=== PATIENT | female | born 2000 | race Caucasian/White ===

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

== ENCOUNTER 2022-02-11 01:45 | Emergency (ER) | payer OTHER, SELFPAY ==
[2022-02-11 01:46] VITALS: BP 114/75; PULSE 86; RESP 15; TEMP 36.9; O2SAT 99; BMI 24.4
[2022-02-11 02:39] LABS: Mucous, Urine 0 SEEN /hpf (<or=2+); Red Blood Cells-Urine 0 SEEN /hpf (0-5)
[2022-02-11 02:41] LABS: Color, Urine Yellow (Yellow); Glucose, Dipstick Normal (Normal); Ketone-Dipstick 5 mg/dl (Negative); Leukocyte Esterase-Dipstick Negative /ul (Negative); Nitrite-Dipstick Negative (Negative); Occult Blood-Urine Negative /ul (Negative); Protein-Dipstick Negative (Negative); Specific Gravity, Urine 1.015 (1.002-1.030); Urine Bilirubin Dipstick Negative (Negative); Urine Clarity Clear (Clear); Urine Urobilinogen Normal (Normal)
[2022-02-11 02:43] LABS: Absolute Lymphocyte Count 2.08 X10^3/uL (0.83-4.51); Absolute Neutrophil Count 6.2 X10^3/uL (2.0-7.7); Basophil% 0.9 % (0-1); Eosinophils% 20.2 % (0-5); Hematocrit 42.9 % (37-47); Hemoglobin 15.1 g/dL (12.0-15.0); Lymphocyte # 2.08 X10^3/ul (0.83-4.51); Lymphocyte % 18.2 % (19-41); Mean Corp Hgb Conc 35.2 g/dL (32-36); Mean Corpuscular Hgb 32.2 pg (27.0-32.0); Mean Corpuscular Volume 91.5 fL (81-99); Mean Platelet Vol. 9.3 fl (6.2-12.0); Monocyte# 0.72 X10^3/uL; Monocyte% 6.3 % (0-10); NRBC Flagged by Analyzer 0 % (0-5); Neutrophil # 6.18 X10^3/uL (2.7-7.7); Neutrophil % 54.2 % (47-70); POSITIVE DIFFERENTIAL YES; Platelet Count 364 K/mm3 (150-450); RBC Distribution Width CV 12.5 % (11.6-14.6); RBC Distribution Width SD 41.1 fl (35.1-43.9); Red Blood Count 4.69 M/mm3 (4.2-5.4); White Blood Count 11.4 K/mm3 (4.4-11.0)
[2022-02-11 02:43] LABS: Internal QC Validated? YES +Cl - CLEAR BKGD; Pregnancy, Urine Negative Negative
[2022-02-11 02:46] VITALS: RESP 16
[2022-02-11 02:53] LABS: Bacteria 2+ /hpf (None Seen); Squamous Epithelial Cells - UA 0-5 SEEN /hpf (5-10); White Blood Cells 0-5 SEEN /hpf (0-5)
[2022-02-11 02:58] LABS: Anion Gap 8 (5-15); BUN 10 mg/dL (7-18); BUN/Creat Ratio 10.7 RATIO (10-20); Calcium,Total 9.7 mg/dL (8.5-10.1); Chloride 104 mmol/L (98-107); Creatinine, Serum 0.93 mg/dL (0.55-1.02); EST Glomerular Filtration Rate 81 mL/min (>60); Est Glom Filt Rate - Afr Amer 98 mL/min (>60); Estimated Creatinine Clearance 69.31 ml/min; Glucose 88 mg/dL (74-106); Potassium 3.4 mmol/L (3.5-5.1); Sodium Level 137 mmol/L (136-145)
[2022-02-11 03:00] VITALS: RESP 15
[2022-02-11 03:01] LABS: Amphetamine Urine VISTA NEGATIVE (<1000 ng/mL); Barbiturate Urine VISTA NEGATIVE (< 200 ng/mL); Benzodiazepine Urine VISTA NEGATIVE (< 200 ng/mL); Cocaine Urine VISTA NEGATIVE (< 300 ng/mL); Ecstacy Urine VISTA POSITIVE (< 500 ng/mL); Methadone Urine VISTA NEGATIVE (< 300 ng/mL); PCP Urine VISTA NEGATIVE (< 25 ng/mL); THC Urine VISTA POSITIVE (< 50 ng/mL); Vista UDS pH Range 5
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
[2022-02-11 03:05] LABS: Acetaminophen (Tylenol) Level < 2.0 ug/mL (10.0-30.0); Alcohol, Blood (Medical)-Serum < 3.0 mg/dL; Differential Comment SCANNED; Differential Indicated SCAN CRITERIA MET; Salicylate < 1.7 mg/dL (2.8-20.0)
--- NOTE | 2022-02-11 03:12 | ED.RN ---
CALLED AND FAXED EVERYTHING TO CRISIS
[2022-02-11 05:00] VITALS: RESP 15
[2022-02-11 06:40] VITALS: BP 128/76; PULSE 52; RESP 16; O2SAT 98
[2022-02-14 20:55] LABS: Pathologist Review Reviewed
== END 2022-02-11 06:46 | disposition home or self-care (01) ==
PROVIDERS: Emergency Provider Emergency Medicine; Visit Provider Emergency Medicine
DX: F32.A Depression, unspecified (principal); R45.851 Suicidal ideations; F17.210 Nicotine dependence, cigarettes, uncomplicated; Z86.16 Personal history of COVID-19
CPT/HCPCS: 80048; 80307; 80329; 81001; 81025; 82077; 85025; 87811; 99283; G0480

== ENCOUNTER 2022-03-16 08:00 | Outpatient (RCR) | payer OTHER, SELFPAY ==
--- NOTE | 2022-03-16 09:00 | BH.COMM ---
Communication Note - Communication with Client Communication Note: Pt completed initial paperwork and [place] [facility] Scre[facility]. Case discussed with Dr. Purvis with plan to admit to [facility] level of care with dx of F33.2
--- NOTE | 2022-03-16 09:00 | BH.COMM_ITS ---
Communication Note - Communication with Client Communication Note: Pt completed initial paperwork and [place] [facility] Sc reening. Case discussed with Dr. Purvis with plan to admit to [facility] level of care with dx of F33.2
--- NOTE | 2022-03-16 11:15 | BH.SGPN.GN ---
Behaviors/Verbalizations/Mental Status: []Client alert and oriented, casually dressed and groomed. Eye contact good. Motor activity appropriate. Speech within normal limits. Affect congruent, mood euthymic. Thoughts linear, logical, no signs of hallucinations or delusions. Client Response/Progress/Benefit: []Client responded well to session, attentive. Did well to process activity and work with group to relate the strategies used to overcome barriers in the activity to managing change in own life. Client identified she wants to change her reaction is intrusive thoughts. client stated she is currently in preparation stage. Client reported goal is to journal her thoughts and reactions every time she has an intrusive thought rather than action on the thought. Appeared to benefit from identifying a small goal to work towards. Client will continue IOP tx to prevent decompensation, gain healthy coping skills, and improve daily functioning.
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
--- NOTE | 2022-03-16 15:44 | BH.COMM ---
Communication Note - Communication with Client Communication Note: Met with patient to complete initial paperwork. No significant changes since pre-admission screening. Completed [place] [facility]icide Screening. Low to moderate risk. Pt has no hx of prior suicide attempts or hospitalizations. Hx of chronic, passive SI. Reports vague plan to overdose or use her grandmother?s gun, without actual plan or intent. Denies any suicidal ideation in past month. Hx of self-harming via cutting on 3 occasions in the past year. Last occasion was again 3-4 weeks ago. Reports she has not engaged in any self-harming behaviors since and denies any urges to do so. Denies access to lethal means. Pt denies hx of HI, plan or intent. Case discussed with Dr. Purvis with plan to admit to IOP level of care with dx of Major depressive disorder, recurrent, severe without psychosis, F33.2
== END 2022-03-16 23:59 ==
LOC: BHIOP 08:00
PROVIDERS: Referring Provider Psychiatry & Neurology Psychiatry; Visit Provider Psychiatry & Neurology Psychiatry
DX: F33.2 Major depressive disorder, recurrent severe without psychotic features (principal); Z91.51 Personal history of suicidal behavior
CPT/HCPCS: S9480; 90834; 90853

== ENCOUNTER 2022-03-17 07:27 | Outpatient (RCR) | payer OTHER, SELFPAY ==
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
[2022-03-17 10:08] VITALS: BP 124/78; PULSE 79
--- NOTE | 2022-03-17 10:13 | BH.SGPN.GN ---
Behaviors/Verbalizations/Mental Status: []Client alert and oriented, casually dressed and groomed. Eye contact good. Motor activity appropriate. Speech within normal limits. Affect congruent, mood anxious and euthymic. Thoughts linear, logical, no signs of hallucinations or delusions. Client Response/Progress/Benefit: [] Client responded well to session AEB sharing and listening attentively to others. Client participated in activity illustrating how perspective affects mental health. Client participated in group discussion on what shapes our perspective, contributing priorities and current emotions as examples. Client appeared connected to psychoeducation on how our thoughts and attitude can become ?lenses? that we see the world through. Participated in group discussion reviewing how these lenses affect mental health treatment, stating that a negative perspective could cause someone to be less willing to participate in the tx process. Shared her current perspective positive but that she still struggles with reinforcing this outside of the tx environment. Shared that this has resulted in client continuing to struggle with managing her emotions at times, but that she is working on addressing and improving these skills. Client appeared to benefit from increased knowledge of perspective and how mental health can impact or be impacted by one?s perspective. Will continue IOP treatment to improve anxiety and mood management skills, increase confidence in self, and improve overall mood stability. Narrative Note: []
--- NOTE | 2022-03-17 11:15 | BH.SGPN.GN ---
Behaviors/Verbalizations/Mental Status: []Pt alert and oriented, casually dressed and groomed. Eye contact good. Motor activity appropriate. Speech within normal limits. Affect congruent, mood euthymic. Thoughts linear, logical, no signs of hallucinations or delusions. Client Response/Progress/Benefit: []Pt was attentive and contributed in small and larger group discussion. Pt completed strengths exploration worksheet and identified personal strengths to include: curiosity, leadership, empathy, and modesty. Pt shared that working to recognize these personal strengths more consistently will help improve pt?s mood and increase self-worth. Shared wanting to focus on fostering personal strengths by practicing ?putting my eggs in multiple baskets? or not limiting herself by the roles she puts herself in. Also identified barriers for acknowledging and using strengths. Benefited from identifying personal strengths and strategies for enhancing use of identified strengths. Pt to continue IOP tx to increase distress tolerance skills, reduce the use of unhealthy coping skills, and improve daily functioning. Narrative Note: []
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
--- NOTE | 2022-03-17 12:52 | BH.DR.ITP ---
Initial Treatment Plan Patient Information Visit Information: ADMISSION DATE: EXPECTED LOS: 4-6 weeks Problems/Symptoms Problem #1:: Depression Symptom:: Sadness, irritability, worthlessness, low energy, decreased concentration, guilt, chronic passive suicidal ideation, recent thoughts of self-harm Problem #2:: Anxiety Symptom:: Worry, rumination, flashbacks, reexperiencing, avoidance
--- NOTE | 2022-03-17 14:49 | BH.MTP_ITS ---
Master Treatment Plan - Patient Information Program Physician:: Dr. Bee Purvis Primary Therapist:: JOSE Toro - Psychiatric Diagnoses Psychiatric Diagnoses:: 1. Major depressive disorder, recurrent, severe. 2. PTSD. 3. Borderline personality disorder. 4. Generalized anxiety disorder Diagnosis Code(s):: F 33.2 - Estimated LOS Estimated LOS (in weeks):: 6 Problem/Goal #1 - Problem/Goal #1 Stated Goal:: Client will reduce depressive symptoms, worthlessness, irritability, hopelessness, and apathy associated with major depressive disorder AEB reduction of scores on the depressive domain of the DSM-5 cross-cutting scales. Description of Barriers: Limited support, conflict with current support, hx of poor tx outcomes, and a far commute to tx which is a concern to pt given recent increase in gas prices Functional Impact: The patient is a 21-year-old female with a history of depression, anxiety and PTSD who was referred to the IOP program by a perinatal social worker in the [facility] emergency room. The patient was seen in the emergency room on February 11, 2022 with suicidal ideation and thoughts of self-harm after an argument with her boyfriend and step grandmother, whom she calls ?mom?. Pt reports that her mental health has been a stressor for much of her life but that sx have gotten progressively worse in the past year. Reports her greatest stressor lately is the fact that her boyfriend is now living away from her and she seeks reassurance often that he cares for and about her. Reports that when she is anxious, she has emotional outbursts like she did on February 11, 2022. Shared she has a hx of damaging property during these times and becomes upset when her mother tries to stop her from harming herself. The patient has a hx of self-harming via cutting and reports she cut her leg superficially on February 11, which was the first time in ?a long time?. Shared she occasionally punches herself when upset, but denies any other recent self-harm. At the time of her ER visit on February 11 she was ruminating negatively on her mother's by overdose when the patient was 17 years old. Patient is currently estranged from her father but has reconnected with him recently which has been an additional stressor. At time of intake, pt endorsing fear of rejection and abandonment, depression, crying spells, irritability, mood swings, isolation, apathy, worthlessness and guilt, low energy and decreased concentration, chronic suicidal ideation when her emotions escalate only. Denies any active SI, plan, or intent. Pt reports current sx are impacting her social, occupational, and educational functioning and has increased interpersonal stressors. - Objectives Objective #1 Stated Objective: Client will learn and utilize 2-3 healthy coping strategies to manage depressive symptoms AEB self-report and reduction in DSM-5 scores Interventions: Therapist will help client identify distorted, negative beliefs about self and replace with more realistic, affirmative messages. Therapist will use CBT to help client increase insight to the connection between thoughts, emotions, and behaviors. Therapist will encourage client to practice thought challenging. Discharge Criteria: Able to identify and consistently use 2-3 healthy coping skills for depression. Reduction on DSM-5 depression domain. Target Date: 04/27/22 Review Date: 04/06/22 Objective #2 Stated Objective: Client will improve relationship with self and reduce discomfort in being alone by learning and engaging in independent practices that help enhance a sustained sense of jarvis. Interventions: Use validation, dialectical strategies and cognitive-behavioral strategies to help the client manage, reduce, or regulate maladaptive behaviors, thoughts, and feelings. Facilitate the client?s personal and interpersonal growth by helping him/her choose experiences that strengthen self-awareness, personal values, and appreciation of life. Provide psychoeducation on healthy self-care activities and encourage client to consistently begin engaging in these. Discharge Criteria: Client will report reduced depressive sx and improved sense of self-confidence, as well as be able to identify and report engaging in 2-3 self-care practices Target Date: 04/27/22 Review Date: 04/06/22 Problem/Goal #2 - Problem/Goal #2 Stated Goal:: Client will reduce overall frequency, intensity, and duration of anxiety to improve functioning AEB by a reduction of scores on the anxiety domain of the DSM-5 cross-cutting scales. Description of Barriers: Limited support, conflict with current support, hx of poor tx outcomes, and a far commute to tx which is a concern to pt given recent increase in gas prices Functional Impact: The patient is a 21-year-old female with a history of depression, anxiety and PTSD who was referred to the IOP program by a perinatal social worker in the [facility] emergency room. The patient was seen in the emergency room on February 11, 2022 with suicidal ideation and thoughts of self-harm after an argument with her boyfriend and step grandmother, whom she calls ?mom?. Pt reports that her mental health has been a stressor for much of her life but that sx have gotten progressively worse in the past year. Reports her greatest stressor lately is the fact that her boyfriend is now living away from her and she seeks reassurance often that he cares for and about her. Reports that when she is anxious, she has emotional outbursts like she did on February 11, 2022. Shared she has a hx of damaging property during these times and becomes upset when her mother tries to stop her from harming herself. The patient has a hx of self-harming via cutting and reports she cut her leg superficially on February 11, which was the first time in ?a long time?. Shared she occasionally punches herself when upset, but denies any other recent self-harm. At the time of her ER visit on February 11 she was ruminating negatively on her mother's by overdose when the patient was 17 years old. Patient is currently estranged from her father but has reconnected with him recently which has been an additional stressor. At time of intake, pt endorsing fear of rejection and abandonment, depression, crying spells, irritability, mood swings, isolation, apathy, worthlessness and guilt, low energy and decreased concentration, chronic suicidal ideation when her emotions escalate only. Denies any active SI, plan, or intent. Pt reports current sx are impacting her social, occupational, and educational functioning and has increased interpersonal stressors. - Objectives Objective #1 Stated Objective: Client will identify 2-3 anxiety triggers and 2 calming coping skills to reduce anxiety as shown by decreased DSM-5 cross cutting symptom measure scores. Interventions: Through individual and group counseling will teach the client calming/relaxation skills (e.g., muscle relaxation, mindful breathing) and how to discriminate better between relaxation and tension; teach the client how to apply these skills to his/her daily life. Discharge Criteria: Able to identify and consistently utilize per self-report 3 calming skills to manage anxiety and improve functioning. Target Date: 04/27/22 Review Date: 04/06/22 Objective #2 Stated Objective: Client will identify 2-3 cognitive distortions that lead to rumination and learn 2-3 ways to manage these thoughts to better manage anxiety. Interventions: Therapist will use CBT and DBT techniques to help client gain awareness of thinking errors and learn how to more effectively handle negative thoughts. Therapist will provide education on the most common cognitive distortions and teach client the connection between thoughts, emotions, and feelings. Therapist will assist client in identifying, challenging, and replacing dysfunctional thoughts with positive, more realistic thoughts. Discharge Criteria: Pt will identify and be able to successfully replace 2-3 distortions causing panic and increased anxiety Target Date: 04/27/22 Review Date: 04/06/22
--- NOTE | 2022-03-19 10:10 | BH.SGPN.GN ---
Behaviors/Verbalizations/Mental Status: []Pt alert and oriented, casually dressed and groomed. Eye contact good. Motor activity appropriate. Speech within normal limits. Affect congruent, mood euthymic. Thoughts linear, logical, no signs of hallucinations or delusions. Client Response/Progress/Benefit: []Pt was an active participant in group discussions. Attentive during psychoeducation on 4 types of conflict styles (Competing, Collaborating, Avoiding, and Accommodating). Worked with group to define conflict and identify how conflict is helpful. With peers identified barriers to addressing or managing conflict which included: fear of upsetting others, fear of the outcome, and feeling uncomfortable. Pt believes she uses the competing style the most. Pt shared this style leads to pt ?using all of my energy on my emotions? and maintaining unhealthy cycles. Benefited from group due to increase insight and awareness of benefits to conflict, conflict styles, and obstacles to managing conflict. Will continue in IOP to reduce the use of unhealthy coping skills, increase emotional regulation skills, and improve overall functioning. Narrative Note: []
--- NOTE | 2022-03-19 11:15 | BH.SGPN.GN ---
Behaviors/Verbalizations/Mental Status: []Pt alert and oriented, casually dressed and groomed. Eye contact good. Motor activity appropriate. Speech within normal limits. Affect congruent, mood euthymic and anxious. Thoughts linear, logical, no signs of hallucinations or delusions. Client Response/Progress/Benefit: []Pt engaged in session AEB contributing to discussion and engaging in activity. Pt did well to review current conflict style and its impact on mental health. Attentive and taking notes during discussion on strategies for more effectively managing conflict in personal life. Pt participated in activity and did well to be assertive and collaborating. Pts given handout on fair fighting rules. Pt wants to improve her ability to manage conflict by working on asking herself why she is upset before entering a conflict. Pt shared this will help pt reduce emotional reactivity and response better during stress situations. Appeared to benefit from gaining strategies to help pt better manage conflict. Will continue IOP tx to increase self-awareness of BPD symptoms, increase emotional regulation skills, and improve daily functioning. Narrative Note: []
--- NOTE | 2022-03-24 10:13 | BH.SGPN.GN ---
Behaviors/Verbalizations/Mental Status: []Eye contact is good. Motor activity is appropriate. Appearance is casual. Speech is Appropriate. Mood is anxious and euthymic. Affect is congruent. Thoughts are linear and logical. No evidence of psychosis. Client Response/Progress/Benefit: []Pt connected with topic of Anxiety and participated throughout, providing input and taking notes. Attentive during psychoeducation on different anxiety disorders and participated throughout interactive discussion defining anxiety and identifying cognitive and physiological symptoms of anxiety. Pt stated ?anxiety can motivate us to do better at things like sports?. Common cognitive symptoms identified by group included: ?what if thoughts?, ?fear of failure?, and predicting the future type thoughts. Physiological symptoms reported by patient included: crying, restlessness, and increased heart rate. Benefited from increased awareness and insight on anxiety and its impact. Plan is to continue in IOP to maintain mood stability, increase consistency of healthy coping, and prevent decompensation. Narrative Note: []
--- NOTE | 2022-03-24 14:46 | BH.MDN_ITS ---
Multi-Disciplinary Note - Note 30-min Individual Time Started:: 09:33 Date: 03/24/22 Purpose of session/treatment goals addressed:: To address current stressors impacting mental health and causing increased anxiety. Another purpose was to address treatment goals 1 & 2 by learning the ACCEPTS skill for distress tolerance. Eye Contact:: Good Motor Activity:: Appropriate Appearance:: Neat, Casual Speech:: Appropriate Mood:: Euthymic, Anxious Affect:: Full Thoughts:: Linear, Logical, No evidence of hallucinations/delusions noted Staff Interventions:: psychoeducation on: - healthy boundary setting, emotion regulation and self-care, strengths perspective, goal setting, taught coping skills - DBT skill of ACCEPTS, other - reviewed distortions Client Response:: Client responded well to session, open to meeting with therapist. Client stated she and her boyfriend recently learned his father will be moving back to the area from [place] where he had been in rehab for polysubstance use. Client discussed concerns this may have on both her mental health and her boyfriend?s, given that client?s mother had overdosed shortly after discharging from rehab several years ago. Client did well to identify the importance of continued self-care and communicating with her boyfriend ahead of time about what boundaries may be important to establish with his father. Client identified visiting only with him in public places and if her is sober, as well as not agreeing to do any favors or loan any money to him as well. Discussed reminding herself to focus on what is in her control would be helpful as well. Identified plans to continue to maintain the self-care routine she has recently implemented, which includes: picking up her room daily, working out 3-5x a week, and reading each day. Client receptive to discussion reviewing importance of continued self-care on overall emotion regulation and appeared to connect with psychoeducation on distress tolerance skills she can utilize when experiencing unexpected stressors or triggers. Reviewed the DBT ACCEPTS skill and client reports willingness to begin tracking use of the ACCEPTS skills during moments she is feeling triggered. Risks/Concerns:: Client denies any suicidal ideations, plan, or intent as of 03/24/22. Client denies any homicidal ideations. Progress Toward Goals/Plan:: Client is responding well to tx AEB self-report of reduced anxiety and improved mood. Client continues to be attentive and actively engaged during group sessions and receptive to homework in individual sessions. Client reports beginning to utilize the skills for regulating her emotions and challenging her thoughts that she has been learning over the past week and a half, expressing beliefs she has already begun to see progress. Client continues to endorse negative thinking, ruminating thoughts, reassurance seeking, and mood swings. Client will continue IOP tx to prevent decompensation, learn healthy coping skills, and challenge distortions. Time Stopped:: 10:07
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
--- NOTE | 2022-03-25 09:08 | BH.SGPN.GN ---
Behaviors/Verbalizations/Mental Status: [] Client alert and oriented, casually dressed and groomed. Eye contact good. Motor activity appropriate. Speech within normal limits. Affect normal, mood euthymic. Thoughts linear, logical, no signs of hallucinations or delusions. Reviewed client's symptom tracker, no risk for suicidal ideation, plan, or intent as of 03/25/22 Client Response/Progress/Benefit: [] Client responded well to session, attentive and providing active supportive feedback to other group members. Client reported feeling tired, but optimistic due to not sleeping well, but is excited about her mental health journey. Client shared personal victories, including consistency on self care and focus on mental and physial health. Client indicated that stressor was feeling tired due to struggle with sleep. Appeared to benefit from reflecting on goals and providing/getting validation from other group members. Will continue IOP tx to build on skills to improve overall functioning. Narrative Note: []
--- NOTE | 2022-03-25 10:20 | BH.SGPN.GN ---
Behaviors/Verbalizations/Mental Status: []Eye contact is good. Motor activity WNL. Appearance is casual. Speech is Appropriate. Mood is euthymic and anxious. Affect is congruent. Thoughts are linear and logical. No evidence of psychosis. Client Response/Progress/Benefit: []Pt engaged and actively participating throughout group discussions and psychoeducation on managing emotions. Contributed as group identified obstacles or potholes that hinder our ability to communicate in stressful situations. Pt noted looking away or not allowing herself to display emotion as a personal pothole. Group identified the following additional obstacles; assumptions, shutting down, misinterpreting someone?s communication style, personalizing, and trying to communicate too much information at once. Pt provided insight on how awareness and consistent use of healthy coping skills can help improve emotion regulation and overall communication. Pt was engaged during the activity, taking on both a leadership role as well as supporting others in the group setting. Benefited from increased awareness on how our emotions impact our communication. Will continue in IOP to prevent decompensation, continue to learn healthy coping skills for emotion regulation, and improve daily functioning. Narrative Note: []
--- NOTE | 2022-03-25 11:15 | BH.SGPN.GN ---
Behaviors/Verbalizations/Mental Status: []Pt alert and oriented, casually dressed and groomed. Eye contact good. Motor activity appropriate. Speech within normal limits. Affect constricted, mood anxious. Thoughts linear, logical, no signs of hallucinations or delusions. Client Response/Progress/Benefit: []Pt engaged in session AEB client listening attentively to peers and providing input. Attentive during psychoeducation on 4 zones of regulation. Pt able to identify feelings and behaviors for each zone. Pt identified coping skills one can use to support self in each zone. Pt stated belief that pt is in the yellow and blue zones today. Pt reports feeling tired, agitated, and distracted today. Pt reports wanting to take a nap, accomplish some small tasks around the house, and look at the evidence when having anxious thoughts. Benefited from increased education on zones of regulation or stages of alertness for emotions and healthy coping skills to use for each zone. Pt will continue IOP tx to increase self-awareness, improve emotional regulation skills, and improve overall functioning. Narrative Note: []
--- NOTE | 2022-03-26 10:15 | BH.SGPN.GN ---
Behaviors/Verbalizations/Mental Status: []Pt alert and oriented, casually dressed and groomed. Eye contact good. Motor activity appropriate. Speech within normal limits. Affect congruent, mood content. Thoughts linear, logical, no signs of hallucinations or delusions Client Response/Progress/Benefit: []Pt responded well to session AEB sharing and listening attentively to others. pt was engaged throughout group discussion defining fixed mindset and what it can look like. Group discussed how fixed mindset affects mental health and why we use fixed thoughts. Pt participated in experiential activity encouraging pts to find solutions to a seemingly impossible task. Pt identified personal fixed thoughts in session which included ?I?m worthless, not good enough, and I?m not going anywhere in life.? Pt gained insight to how these fixed thoughts reduce motivation and keep pt stuck in unhealthy cycles. Pt appeared to benefit from increased knowledge of fixed mindset and self-awareness of personal fixed thoughts. Will continue IOP treatment to reduce negative self-talk, improve emotional regulation skills, and increase distress tolerance. Narrative Note: []
--- NOTE | 2022-03-26 11:16 | BH.SGPN.GN ---
Behaviors/Verbalizations/Mental Status: []Pt alert and oriented, casually dressed and groomed. Eye contact good. Motor activity appropriate. Speech within normal limits. Affect congruent, mood euthymic. Thoughts linear, logical, no signs of hallucinations or delusions. Client Response/Progress/Benefit: []Pt engaged during activity and discussion AEB providing some input, connecting with peers, as well as taking notes throughout. Pt did well to engage as group worked on identifying characteristics and benefits of adopting a growth mindset. Worked with fellow participants in reframing the example fixed thoughts into growth mindset thoughts, providing support throughout. Reframed personal fixed thought of ?this isn?t good enough? with growth mindset thought of ?nobody is perfect. Doing good is achievable, but also my imperfections help me grow and make me human.? Benefitted from discussing benefits of growth mindset and brainstorming strategies for prompting growth-mindset. Will continue IOP tx to reduce negative thinking patterns, improve self-care consistency, and maintain mood stability. Narrative Note: []
--- NOTE | 2022-03-27 09:00 | BH.SGPN.GN ---
Behaviors/Verbalizations/Mental Status: [] Eye contact is good. Motor activity is appropriate. Appearance is casual. Speech is Appropriate. Mood is euthymic. Affect is full. Thoughts are linear and logical. No evidence of psychosis. Reviewed daily check in sheet and no reports of suicidal ideations or intent. Client Response/Progress/Benefit: [] Pt was an active participant in group discussion. Attentive. Provided appropriate feedback. Emotion for today happy. Daily symptom tracker notes 2/5 for depression and /5 for anxiety. Mental health win was stepping outside her comfort zone last night. She discuss how this was beneficial to her mental health. Reports that she has been utilizing coping skills such as reframing and challenging her initial perceptions and not simply accepting automatic negative thoughts. Stressor is reported to be her sleep schedule and figuring out ways to fall asleep w/o rumination. Progress noted per pt report. Benefited from group support, encouramgent, and feedback. Will continue in IOP to prevent decompensation, maintain safety, and increase healthy coping skills. Narrative Note: []
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
--- NOTE | 2022-04-02 10:10 | BH.SGPN.GN ---
Behaviors/Verbalizations/Mental Status: [] Eye contact is good. Motor activity is appropriate. Appearance is casual. Speech is Appropriate. Mood is euthymic. Affect is full. Thoughts are linear and logical. No evidence of psychosis Client Response/Progress/Benefit: [] Pt was an active participant in group discussions and experiential activity. Attentive during psychoeducation. Group had an interactive discussion in which they provided insight on the definition of a pitfall which was things that we engage in that keep us stuck and away from a healthier path. Group identified types of pitfalls in mental health such as isolation, not asking for help, avoiding, not taking medications, avoiding responsibilities, not setting boundaries, and self-sabotage. Pt played an active role in the experiential activity and was able to make connections between the activity and today's topic. Benefited from increased insight on pitfalls and how they can impact mental health. Will continue in IOP to prevent decompensation, maintain safety, increase health coping, and stablize mood. Narrative Note: []
--- NOTE | 2022-04-02 11:10 | BH.SGPN.GN ---
Behaviors/Verbalizations/Mental Status: []Pt alert and oriented, casually dressed and groomed. Eye contact good. Motor activity appropriate. Speech within normal limits. Affect congruent, mood anxious and dysthymic. Thoughts linear, logical, no signs of hallucinations or delusions. Client Response/Progress/Benefit: []Pt receptive of session, engaged throughout AEB pt actively listening and contributing to discussion, as well as taking notes.? Pt completed worksheet identifying personal pitfalls impacting mental health progress. Pt identified the following pitfalls: negative thoughts, self-doubt, wanting to give up, anxiety, sadness, and not realizing when needing a break. Group worked together to identify different coping skills to help manage pitfalls. Pt selected the following coping skills to help with pitfalls: thought challenging, self-reflection and journaling mood, as well as using the T.H.I.N.K. acronym for thought challenging. Pt wants to work on managing pitfalls by setting small goals focused on improving her thought challenge skills and ability to reframe distortions. Benefited from identifying personal pitfalls and strategies to overcome these pitfalls. Will continue IOP tx to reduce unhealthy thought patterns, improve mood stability, and increase healthy coping behaviors. Narrative Note: []
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
--- NOTE | 2022-04-06 09:08 | BH.SGPN.GN ---
Behaviors/Verbalizations/Mental Status: []Pt alert and oriented, neatly dressed and groomed. Eye contact good. Motor activity appropriate. Speech within normal limits. Affect full, mood euthymic and anxious. Thoughts linear, logical, no signs of hallucinations or delusions. Reviewed pt?s symptom tracker, no risk for suicidal ideation, plan, or intent as of 04/06/22 Client Response/Progress/Benefit: []Pt responded well to session, attentive and providing supportive statements to peers. Pt reports using fidgety this morning due to continuing to cope with the triggers of Father's Day. Pt stated overall she coped well with the triggers as pt went for a drive and listened to music. Pt also spent time with her boyfriend and his sisters which was positive. Pt also received news that she will be getting money back from college which reduced a lot of financial stress. Pt appeared to benefit from reflecting on positives and use of skills. Pt will continue IOP tx to promote mood stability, further reduce negative thinking, and improve daily functioing. Narrative Note: []
--- NOTE | 2022-04-06 10:10 | BH.SGPN.GN ---
Behaviors/Verbalizations/Mental Status: []Eye contact is good. Motor activity is appropriate. Appearance is casual. Speech is Appropriate. Mood is euthymic. Affect is congruent. Thoughts are linear and logical. No evidence of psychosis. Client Response/Progress/Benefit: []Pt was an active participant in group discussion and activity. Attentive during psychoeducation on social stigma vs self-stigma. Pt was actively involved in interactive discussion on the question of What impacts how we define and view ourselves? Pt along with peers were able to identify several aspects that impact how we view ourselves which include: society, past experiences, upbringing, guilt over past actions, shame, what we tell ourselves, and actions. Pt reported internal stigma has kept her from believing she deserves relationships. Benefited from increased awareness of how mental health stigma can impact individuals and treatment. Plan is to continue in IOP to maintain progress, increase confidence, and prevent decompensation.
--- NOTE | 2022-04-07 09:10 | BH.SGPN.GN ---
Behaviors/Verbalizations/Mental Status: []Pt alert and oriented, casually dressed and groomed. Eye contact good. Motor activity appropriate. Speech within normal limits. Affect congruent, mood euthymic and anxious. Thoughts linear, logical, no signs of hallucinations or delusions. Reviewed pt?s symptom tracker, no risk for suicidal ideation, plan, or intent as of 04/07/22 Client Response/Progress/Benefit: []Pt responded well to session, attentive and providing supportive statements to peers. Pt reports feeling hopeful this morning as she is seeing progress in treatment and feels overall more capable of managing her current mental health sx. Pt stated looking forward to a concert she has planned in May with her boyfriend and was excited to have finished paying for the ticket for the event. Pt also reports spending time with her boyfriend and his sisters which was positive as she has been trying to focus on being around healthy supports and setting better boundaries with unhealthy people in her life. Reports improved boundaries have reduced exposure to unnecessary trauma triggers and aided in pt making the decision to begin seeking trauma specific treatment following IOP completion. Pt appeared to benefit from reflecting on positives and use of skills. Pt will continue IOP tx to promote mood stability, further reduce negative and anxious thinking, and improve daily functioning. Narrative Note: []
--- NOTE | 2022-04-07 10:10 | BH.SGPN.GN ---
Behaviors/Verbalizations/Mental Status: [] Eye contact is good. Motor activity is appropriate. Appearance is casual. Speech is Appropriate. Mood is euthymic. Affect is full. Thoughts are linear and logical. No evidence of psychosis. Client Response/Progress/Benefit: [] Pt was an active participant in group discussion and group experiential activity. Attentive during psychoeducation on SMART (Specific, Measurable, Achievable, Realistic, Timely)goals. Engaged in interactive discussion with peers on benefits to setting goals. Pt stated that goals help her with personal growth. Shared that the obstacles to setting/following goals are her mood, her mental health, and negative self-talk. Engaged during activity and was able to relate the activity to goal-setting topic. Benefited from increased awareness on benefits to goal-setting, obstacles to developing and following through with a goal, and strategies for setting goals. Will continue in IOP to prevent decompensation, increase healthy coping skills, and maintain safety. Narrative Note: []
--- NOTE | 2022-04-07 11:15 | BH.SGPN.GN ---
Behaviors/Verbalizations/Mental Status: []Pt alert and oriented, casually dressed and appropriately groomed. Eye contact good. Motor activity appropriate. Speech within normal limits. Affect congruent, mood euthymic. Thoughts linear, logical, no signs of hallucinations or delusions. Client Response/Progress/Benefit: []Pt was an active participant in group discussions and activities. Engaged in activity. Pt identified a SMART goal for the next week is to: go to work from 6:30pm to 9:30pm Tuesday through Tuesday. Pt stated having set schedule will help her stay accountable and work the expected 12 hours versus waiting until last minute to get her work done which increases her anxiety. Identified time management, excuses and procrastination as potential barriers to completing this goal. Pt able to identify several solutions, such as opposite action, identifying consequences of not following schedule, and create visual aid schedule as possible strategies that can help overcome identified barriers. Benefited from group by being able to utilize SMART acronym to create a goal. Pt to continue IOP tx to maintain gains, improve confidence and prevent decompensation.
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
--- NOTE | 2022-04-07 14:56 | BH.MDN ---
Multi-Disciplinary Note - Note 30-min Individual Time Started:: 08:35 Date: 04/07/22 Purpose of session/treatment goals addressed:: Reviewed progress and current symptoms and stressors. 4 weeks treatment plan review. Begin aftercare/Discharge planning. Eye Contact:: Good Motor Activity:: Appropriate Appearance:: Neat, Casual Speech:: Appropriate Affect:: Full Thoughts:: Linear, Logical, No evidence of hallucinations/delusions noted Staff Interventions:: thought challenging, motivational interviewing, psychoeducation on: - trauma and attachment development on relationships later in life, discharge planning, strengths perspective, reviewed DSM-5, goal setting Client Response:: Pt receptive of session and actively engaged throughout. Presents today in good spirits and discussed feeling she has so far made ?a lot of progress?, reviewing improved ability to catch her negative thoughts and better cope with stressors in the moment. Pt discussed trying to take steps to actively break the unhealthy maintenance cycles she engages in by working on challenging her distorted thoughts and unhealthy coping behaviors when recognizing these. Indicated improved interactions with supports as a result. Pt noted continuing to struggle at time with navigating her interpersonal relationships, especially when disappointed or upset by her supports. Shared continuing to struggle with knowing how to communicate her emotions and concerns in healthy ways in moments of unexpected stress or conflict. Continues to lash out or seek reassurance when feeling emotionally triggered. Pt additionally discussed fears she is ?relying too much? on her step grandma ?mom? and boyfriend as primary sources of support. Became tearful as she shared missing her biological mother and feeling she never had the opportunity to ?have a real family like normal people?. Receptive of challenging this and identifying her ability to now create a healthier family dynamic through the supports she chooses to surround herself with. Pt noted wanting to expand her social [place] as she does not have many friends and struggles with allowing herself to let others in. Receptive of discussion introducing attachment styles and impacts of attachment formation on establishment and maintenance of adult relationships. Identified small goals to begin working on to improve communication with current supports. Risks/Concerns:: None noted. Denies SI, plan, or intent as of this date, 04/07/22 Progress Toward Goals/Plan:: Pt completed DSM-5 outcomes at 3-week interval. Overall, pt has seen a 63% decrease in symptoms. 63% decrease in the depression domain, 75% decrease in irritability, and 58% reduction in anxiety domain. Suicidal thoughts decreased 100% in the past 3 weeks as well. Pt also self-reports decreased hopelessness, improved motivation and enjoyment, and overall feeling more positive and self-confident. Pt reports she has been reaching out to healthy supports more consistently and is working to better establish and maintain boundaries with toxic people in her life, though is struggling with guilt associated. Pt admits to continuing to struggle with reassurance seeking and being short with supports at times, though is working to continue to improve in this area. Pt is additionally challenging herself to re-engage in activities she used to enjoy rather than isolating herself in her room. We discussed discharge as this is pt's 3rd week in [facility]. She is moving to [place] in May and is experiencing difficulties in finding providers who take [facility] in that area. Pt reports wanting to look into getting off her mother?s insurance and getting on her own plan. Receptive of establishing with local providers in the meantime. Time Stopped:: 09:10
--- NOTE | 2022-04-07 15:20 | BH.MTP_ITS ---
Treatment Plan Review Date of Admission:: 03/16/22 Date of Treatment Plan Review:: 04/07/22 Admitting Diagnoses:: 1. Major depressive disorder, recurrent, severe. 2. PTSD. 3. Borderline personality disorder. 4. Generalized anxiety disorder Current Diagnoses:: 1. Major depressive disorder, recurrent, moderate. 2. PTSD. 3. Borderline personality disorder. 4. Generalized anxiety disorder Patient's Response to Treatment:: Pt has responded well to tx AEB her ability to remain consistent and engaged in IOP, as well as reports of improvement in mood stability and coping skill application. In groups pt is engaged and shows insight, as well as provides supportive feedback to fellow participants. She does well to remain actively engaged in individual sessions and openly discusses sx, stressors, and barriers impacting tx. Pt reports actively applying the skills she has learned outside the tx environment, as well indicates increased engagement in self-reflection and thought challenging skills. Pt reports improved communication with supports regarding her mental health and support needs as well. Status of Current Problems and Symptoms: Pt completed DSM-5 outcomes at 3-week interval. Overall, pt has seen a 63% decrease in symptoms. 63% decrease in the depression domain, 75% decrease in irritability, and 58% reduction in anxiety domain. Suicidal thoughts decreased 100% in the past 3 weeks as well. Pt also self-reports decreased hopelessness, improved motivation and enjoyment, and overall feeling more positive and self-confident. Pt reports she has been reaching out to healthy supports more consistently and is working to better establish and maintain boundaries with toxic people in her life, though is struggling with guilt associated. Pt admits to continuing to struggle with reassurance seeking and being short with supports at times, though is working to continue to improve in this area. Pt is additionally challenging herself to re- engage in activities she used to enjoy rather than isolating herself in her room. Staff present during review. Dr. Bee Purvis. Mya Almaraz- therapist. Elizabeth Garcia ? therapist. Leandra Rhodes- therapist. Arely Srivastava- nurse Problem #1 Problem Name:: Depression, hopelessness, irritability Status of Goals:: Complete with continued progress encouraged. Pt has shown a 63% reduction of scores on the depressive domain since admission. Suicidal thoughts have also decreased 100% since admission. She is able to identify coping skills, however, has been inconsistent in her application of skills and still struggles with use of maladaptive behaviors at times. Per self-report increased awareness of depression triggers; however struggles with making time to prioritize self-care needs when faced with situational stressors and continues to struggle with relationship with self/self-compassion which is reinforced by pt negative core beliefs. Team Recommendations:: Continue IOP tx with an emphasis on healthy boundary setting and self-care skills. Continue to focus on in the moment distress tolerance, self-compassion, and improving internal dialogue Problem #2 Problem Name:: Anxiety, rumination, reassurance seeking Status of Goals:: Complete with continued progress encouraged. Reduction of 58% in scores on the anxiety domain of the DSM-5. Self-report of decreased anxiety. Able to identify calming skills and reports more consistent use when recognizing triggers. Reports using calming skills more consistently which has aided in reducing emotional reactivity as well. She continues to have days were she struggles with ruminating thoughts and distortions related to interpersonal relationships and stressors. Continues to struggle with reassurance seeking within intimate relationships, though has awareness of this and is actively working on using thought challenging, sitting with the uncomfortable, and replacing safety behaviors with healthier coping tools to reduce reassurance seeking as well. Team Recommendations:: Continue IOP tx with an emphasis on challenging anxious thoughts and reducing unhealthy safety behaviors/reassurance seeking. Will connect pt with EMDR therapy prior to discharge as well.
--- NOTE | 2022-04-08 09:00 | BH.SGPN.GN ---
Behaviors/Verbalizations/Mental Status: []Pt alert and oriented, casually dressed and groomed. Eye contact good. Motor activity appropriate. Speech rapid. Affect congruent, mood anxious. Thoughts linear, logical, no signs of hallucinations or delusions. Reviewed pt?s symptom tracker, no risk for suicidal ideation, plan, or intent as of 04/08/22 Client Response/Progress/Benefit: [] Pt responded well to session, anxious but receptive to feedback. Pt reports feeling afraid this morning due to work stressors and potential consequences. Pt admits she has not been doing her job to the best of her abilities and pt is afraid she will get in trouble. Group offered advice to honestly communicate to pt's employer which pt appeared to benefit from. Pt stated her mental health win today is she is sitting with the uncomfortable and she used healthy emotional regulation skills last night. Pt appeared to benefit from group feedback. Pt will continue IOP tx to further increase distress tolerance, improve work-related functioning, and reduce avoidance. Narrative Note: []
--- NOTE | 2022-04-09 09:05 | BH.SGPN.GN ---
Behaviors/Verbalizations/Mental Status: [] Eye contact is good. Motor activity is appropriate. Appearance is casual. Speech is Appropriate. Mood is euthymic. Affect is full. Thoughts are linear and logical. No evidence of psychosis. Reviewed daily check in sheet and no reports of suicidal ideations or intent. Client Response/Progress/Benefit: [] Pt was an active participant in group discussion. Attentive. Provided appropriate feedback. Daily symptom tracker notes 12/19 for anxiety and anger. Emotion for today is excited. Mental health win is that she is looking forward to spending time with her brother this weekend. She discussed how this is beneficial to her mental health. Another win is that she received her [employer] Assistance certificate in the mail which she is proud to have accomplished. She also reports that she is setting boundaries and accepting that she can't change how other act or what they think. She is also more accepting that people need to change at their own pace. Discussed how she would get frustrated in the past with others not seeing or agreeing with her perspective and this would lead to anger, avoidance, and resentments. Progress noted. Benefited from group support, encouragement, and feedback. Will continue in IOP to maintain safety, increase healthy coping, and prevent decompensation. Narrative Note: []
--- NOTE | 2022-04-09 10:10 | BH.SGPN.GN ---
Behaviors/Verbalizations/Mental Status: []Pt alert and oriented, casually dressed and groomed. Eye contact good. Motor activity appropriate. Speech within normal limits. Affect congruent, mood euthymic. Thoughts linear, logical, no signs of hallucinations or delusions. Client Response/Progress/Benefit: []Pt responded well to session AEB pt listening attentively to others and taking notes. Pt was engaged throughout discussion introducing the topic of self-care and its importance. Group identified myths about self-care, such as self-care is selfish, takes too much money, takes too much time, has to be fun, and means one thinks they are more important than others. Contributed ideas as group identified self-care benefits to include: improved mood, reduced avoidance, better relationships, and more productivity. Pt stated it is important for her to have alone time for self-care. Pt appeared to benefit from increased knowledge of the importance and benefits of self-care. Will continue IOP tx to promote use of emotional regulation skills, reduce avoidance, and improve self-compassion. Narrative Note: []
--- NOTE | 2022-04-09 11:15 | BH.SGPN.GN ---
Behaviors/Verbalizations/Mental Status: []Pt alert and oriented, casually dressed and groomed. Eye contact good. Motor activity appropriate. Speech within normal limits. Affect constricted, mood anxious. Thoughts linear, logical, no signs of hallucinations or delusions. Client Response/Progress/Benefit: []Pt engaged participant AEB completing self-assessment worksheet and contributing input during discussion. Participated throughout group discussion on the various areas of self-care. Pt completed worksheet which identified current self-care practices and what self-care activities pt wants to start using. Pt selected finanical self-care to begin practicing more consistently. Pt plans to do this by making a budget and selling clothes before she buys more. Appeared to benefit from completing the self-care evaluation and gaining insights into current self-care practices, as well as identifying areas in which she would like to improve upon. Will continue IOP tx to further improve emotional regulation skills, reduce impulsivity, and improve daily functioning. Narrative Note: []
--- NOTE | 2022-04-09 11:38 | BH.COMM ---
Communication Note - Communication with Client Communication Note: Pt requested to meet with this therapist at start of group as she was given unexpected news that her plans to see her brother this afternoon may be canceled. Pt tearful and discussed feeling overwhelmed, sad, angry, and anxious. Discussed feeling out of control of the situation. Did well to complete a grounding exercise with therapist and regulate herself. Pt then did well to identify what is in her control of the situation and how she can respond in a healthy way. Shared she can drive to her brother since he can no longer come to her and that she can listen to calming music on the drive there. Able to calm down and return to group.
--- NOTE | 2022-04-14 09:05 | BH.SGPN.GN ---
Behaviors/Verbalizations/Mental Status: [] Eye contact is good. Motor activity is appropriate. Appearance is casual. Speech is Appropriate. Mood is depressed. Affect is full. Thoughts are linear and logical. No evidence of psychosis. Reviewed daily check in sheet and no reports of suicidal ideations or intent. Client Response/Progress/Benefit: [] Pt was an active participant in group discussion on strategies for managing anger. Attentive. Provided appropriate feedback. Emotion for today is nervous and happy. Daily symptom tracker notes 10/21 for depression, anxiety, and anger. Mental health wins are reported to be getting here today. She is said that her IOP therapist went on maternity leave and she doesn't want to start over with therapy This therapist empathized with her feelings and thoughts. Pt states I don't do well with change and she discussed a meltdown she had last week when plans changed. 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 This had worked in the past and feels that she can use these skills with future changes. Benefited from group feedback, support, and encouragement. Will continue in [facility] to maintain safety, prevent decompensation, and increase healthy coping. Narrative Note: []
--- NOTE | 2022-04-14 10:10 | BH.SGPN.GN ---
Behaviors/Verbalizations/Mental Status: []Pt alert and oriented, casually dressed and groomed. Eye contact good. Motor activity appropriate. Speech within normal limits. Affect constricted, mood anxious and irritable. Thoughts linear, logical, no signs of hallucinations or delusions. Client Response/Progress/Benefit: []Pt responded well to session AEB taking notes throughout and listening attentively to others. Pt was attentive throughout group activity identifying famous individuals and how they overcame failure to be successful. Pt helped group identify how fear of failure can impact mental health and relationships. Pt personally identified it leads to self-sabotage, not trying, and isolation. Pt participated in experiential activity, working with group members to problem solve. Appeared to benefit from increased knowledge of fear of failure. Will continue IOP tx to increase distress tolerance skills, improve stress management, and reduce negative thinking patterns. Narrative Note: []
--- NOTE | 2022-04-14 11:15 | BH.SGPN.GN ---
Behaviors/Verbalizations/Mental Status: []Pt alert and oriented, casually dressed and groomed. Eye contact good. Motor activity appropriate. Speech within normal limits. Affect constricted, mood anxious. Thoughts linear, logical, no signs of hallucinations or delusions. Client Response/Progress/Benefit: []Pt responded well to session, engaged in the experiential activity and attentive throughout group processing. Pt reported fear of failure has kept pt from moving out, self-reliance, and adulting. Pt completed fear of failure worksheet and was able to identify thoughts and behaviors that reinforce personal fear of failure including being uncomfortable with not being in control, perfectionism, and negative self-talk. Pt participated in small group discussion regarding strategies to overcome fear of failure. Identified wanting to work on not defining herself by what others have done to her. Appeared to benefit from increased knowledge of strategies to combat fear of failure and gaining self-awareness. Pt will continue IOP tx to further improve emotional regulation skills, reduce negative thinking patterns, and increase distress tolerance skills to manage stressors. Narrative Note: []
--- NOTE | 2022-04-15 10:20 | BH.SGPN.GN ---
Behaviors/Verbalizations/Mental Status: []Pt alert and oriented, casually dressed and groomed. Eye contact good. Motor activity appropriate. Speech within normal limits. Affect congruent, mood euthymic. Thoughts linear, logical, no signs of hallucinations or delusions. Client Response/Progress/Benefit: []Pt was an active participant in group discussion. Group worked together to identify benefits of healthy relationships which include; improves mental health, encouragement, motivation, accountability, validation, connection, someone to share experiences with, and personal growth. Group identified factors that lead to unhealthy relationships which included; co-dependence, lack of personal exploration, gaslighting, and blaming. Pt stated because she did not have any examples of healthy relationships as a child, it was hard for pt to accept the healthy relationship she has currently. Actively participated in group experiential activity and expressed ideas to group. Benefited from increased insight and awareness of benefits of healthy relationships and factors that contribute to unhealthy relationships. Will continue in IOP to promote gains, further decrease negative thinking patterns, and improve work-related functioning. Narrative Note: []
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
== END 2022-04-15 23:59 ==
LOC: BHIOP 07:27
PROVIDERS: Referring Provider Psychiatry & Neurology Psychiatry; Visit Provider Psychiatry & Neurology Psychiatry
DX: F33.2 Major depressive disorder, recurrent severe without psychotic features (principal); F43.10 Post-traumatic stress disorder, unspecified; F60.3 Borderline personality disorder; F41.1 Generalized anxiety disorder; Z91.51 Personal history of suicidal behavior; F12.99 Cannabis use, unspecified with unspecified cannabis-induced disorder; Z79.899 Other long term (current) drug therapy; Z97.5 Presence of (intrauterine) contraceptive device
CPT/HCPCS: S9480; 90832; 90834; 90837; 90853

== ENCOUNTER 2022-04-16 07:25 | Outpatient (RCR) | payer OTHER, SELFPAY ==
[2022-04-16 00:44] VITALS: BP 124/78; PULSE 79
--- NOTE | 2022-04-20 09:05 | BH.SGPN.GN ---
Behaviors/Verbalizations/Mental Status: [] Eye contact is good. Motor activity is appropriate. Appearance is casual. Speech is normal. Mood is depressed. Affect is full. Thoughts are linear and logical. No evidence of psychosis. Reviewed daily check in sheet and no reports of suicidal ideations or intent. Client Response/Progress/Benefit: [] Pt was an active participant in group. Attentive. Tearful at times. Daily symptom tracker notes /5 for depression, anxiety, and anger. Pt shared stressors and events that led to increased depression, anxiety, and irritability. She reports these events triggered fear of abandonment and past experiences which led to increased ruminations. All of this has impacted her mental health. Had urges to verbally lash out impulsively however was able to cope with these urges. She is struggling with setting boundaries for fear of consequences. She was able to process her emotions with the group and a discussion was had about importance of boundaries for one's mental health which was beneficial. Stressor this weekend led to a resurgence of emotions however she was able to utilize skills and support to process and manage. Will continue in IOP to prevent decompensation, increase healthy coping, and maintain gains. Narrative Note: []
--- NOTE | 2022-04-20 10:10 | BH.SGPN.GN ---
Behaviors/Verbalizations/Mental Status: []Client alert and oriented, casually dressed and groomed. Eye contact good. Motor activity appropriate. Speech within normal limits. Affect congruent, mood irritable. Thoughts linear, logical, no signs of hallucinations or delusions Client Response/Progress/Benefit: [] Client responded well to session AEB sharing and listening attentively to others. Client provided examples of benefits of having social support, including ?motivation from gym production trainer?. Client also participated in group discussion regarding how it feels to not have social support, stating she struggles with codedency. Clinician provided psychoeducation on types of support including internal and external support, with client identifying family and social media as other supports. Client participated in experiential activity illustrating the importance of having multiple social supports. Client provided supportive feedback and problem solving throughout group activity. Client became irritable in group activity but spoke up for her needs. Client appeared to benefit from increased knowledge of the benefits of social support and greater self-awareness. Will continue IOP treatment to continue increasing application of healthy coping skills and decreasing negative self-talk to improve daily functioning. Narrative Note: []
--- NOTE | 2022-04-20 11:10 | BH.SGPN.GN ---
Behaviors/Verbalizations/Mental Status: [] Client alert and oriented, casually dressed and groomed. Eye contact good. Motor activity appropriate. Speech within normal limits. Affect congruent, mood irritable. Thoughts linear, logical, no signs of hallucinations or delusions. Client Response/Progress/Benefit: [] Client was an active participant throughout AEB contributing to discussion, providing personal examples, and taking notes. Client processed emotions she felt in the activity and how she coped in the moment. Client discussed how frustrated activity was due to feeling unheard by group members. She provided input during discussion on the types of support our supports can provide. Client was able to identify current support system and barriers that get in the way of using supports. Client reported after identifying what type of supports he receives he was surprised that he has several people in his life that provide emotional support. Client stated she struggles most with emotional support because of past experiences. Connected impact this can have on her mental health. Client seemed to benefit from identifying the type of support she needs to work on improving. Client recommended to continue IOP to continue use of healthy coping, challenge distorted thoughts and prevent decompensation. Narrative Note: []
--- NOTE | 2022-04-21 10:10 | BH.SGPN.GN ---
Behaviors/Verbalizations/Mental Status: []Client alert and oriented, neatly dressed and groomed. Eye contact good. Motor activity appropriate. Speech within normal limits. Affect congruent, mood euthymic, Thoughts linear, logical, no signs of hallucinations or delusions. Client Response/Progress/Benefit: [] Client was an active participant AEB actively taking notes. Attentive during psychoeducation on 4 types of conflict styles (Competing, Collaborating, Avoiding, and Accommodating). Worked with group to define conflict and identify how conflict is helpful. With peers identified barriers to addressing or managing conflict which included: fear of upsetting others, fear of the outcome, and feeling vulnerable. Client shared that it can be beneficial to put conflict to the side at times when it is not the right time. Benefited from group due to increase insight and awareness of benefits to conflict, conflict styles, and obstacles to managing conflict. Will continue in IOP to increase overall functioning, reduce depressive symptomatology,and increase self-esteem. Narrative Note: []
--- NOTE | 2022-04-21 11:15 | BH.SGPN.GN ---
Behaviors/Verbalizations/Mental Status: [] Client alert and oriented, neatly dressed and groomed. Eye contact good. Motor activity appropriate. Speech within normal limits. Affect congruent, mood euthymic and irritable, Thoughts linear, logical, no signs of hallucinations or delusions. Client Response/Progress/Benefit: [] Client engaged in session AEB contributing to discussion and engaging in activity. Client did well to review current conflict style and its impact on mental health with identifying herself as competing with conflict resolution style with always wanting to solve issues right there and then with seeing herself as aggressive.. Attentive and taking notes during discussion on strategies for more effectively managing conflict in personal life. client participated in activity and did well to be assertive and collaborating. client given handout on fair fighting rules. . Appeared to benefit from gaining strategies to help client better manage conflict. Will continue IOP tx to reduce cognitive distortions, improve self-worth, and increase self-care. Narrative Note: []
--- NOTE | 2022-04-21 15:21 | BH.MDN ---
Multi-Disciplinary Note - Note 30-min Individual Time Started:: 09:25 Date: 04/21/22 Purpose of session/treatment goals addressed:: Purpose of session was to address goals 1 and 2 from MTP and discuss discharge plans. Eye Contact:: Good Motor Activity:: Appropriate Appearance:: Casual Speech:: Appropriate Mood:: Anxious, Dysthymic Affect:: Congruent Thoughts:: Linear, Logical, No evidence of hallucinations/delusions noted Staff Interventions:: thought challenging, CBT techniques, discharge planning, strengths perspective, other - reviewed healthy coping skills Client Response:: Client reported she is struggling because she was supposed to go visit her brother in [place] next week but now doesn't think it's a good idea. Client stated her little brother has been living with their Aunt since their mother . Client reported her aunt has not attempted to have a relationship with client. Client stated she hasn't seen her little brother in two years. Client reported her aunt and mom's side of the family wouldn't have a for her mom. Client stated she never got to have that closure of a . Client reported yesterday she found out her little brother is with their aunt in [place], [place] right now. Client stated her aunt could have contacted client to visit them instead of having to drive 8 hours alone to the [facility] next week. Client reported she has decided she doesn't think it would be healthy for her to go on the trip next week because she is too angry with her aunt. Client stated she feels abandoned by her family. Client reported she gets sad when she thinks about not having a good family. Client reported she has been sleeping to deal with her feelings. Client reported skills she can use is journaling and exercise. Client stated next week can be her last week in [facility] since she is not going on vacation now. Client stated she has not finished her application for Medicaid yet. Client reported she will complete the application so she can get a therapist when she moves to [place]. Risks/Concerns:: denies suicidal ideation, plan or intention to date. future focused. Progress Toward Goals/Plan:: Progress noted AEB client being able to manage recent stressor by expressing thoughts and feelings instead of acting impulsively. Client did revert to old habits of sleeping to manage emotions initially but reported she knows that won't help her feel better. Client stated she will get back into working out and coloring to manage emotions. Client did not follow through with plan to apply for Medicaid so she can start EMDR therapy when she moves to [place] next week. Her current insurance plan under her mom is not accepted in [place]. This could be barrier to maintaining treatment progress. Client is to continue IOP to maintain gains and prevent decompensation. Time Stopped:: 10:05
--- NOTE | 2022-04-22 09:05 | BH.SGPN.GN ---
Behaviors/Verbalizations/Mental Status: [] Eye contact is good. Motor activity is appropriate. Appearance is casual. Speech is pressured. Mood is depressed. Affect is full. Thoughts are linear and logical. No evidence of psychosis. Reviewed daily check in sheet and no reports of suicidal ideations or intent. Client Response/Progress/Benefit: [] Pt was an active participant in group discussion. Attentive. Provided appropriate feedback. Daily symptom tracker notes 11/21 for depression and anxiety. Mental health win was cleaning my room this morning. Shared why this was a mental health win and how this was beneficial for her mental health. She updated the group regarding her significant stressor that she discussed yesterday in group. She utilized assertive communication, set boundaries, and made a decision which she felt was most beneficial to herself. She is proud of herself for not acting impulsively and for putting herself and her mental health before others. She is proactive with plans to move out of town next month and is already looking for jobs in the area. Progress noted per pt report. Will continue in IOP to maintain gains, prevent decompensation, and increase healthy coping skills. Narrative Note: []
--- NOTE | 2022-04-22 10:20 | BH.SGPN.GN ---
Behaviors/Verbalizations/Mental Status: [] Eye contact is good. Motor activity is appropriate. Appearance is casual. Speech is Appropriate. Mood is anxious. Affect is congruent. Thoughts are linear and logical. No evidence of psychosis. Client Response/Progress/Benefit: [] Pt was an active participant in group discussion. Attentive during psychoeducation on Problem-Solving in the Moment Protocol. Participated in group experiential activity. Pt provided feedback during interactive group discussion in which pt and peers worked through an example of a problem (Managing Anxiety) in which they identified a goal (minimizing anxiety) and identified barriers. Barriers identified included lack of awareness, mental health stigma, distorted thinking, not having the tools/resources, and being afraid to fail. During the experiential activity pt worked with peers to problem solve using the Problem Solving in the Moment Protocol. Group was able to complete the activity and pt was able to practice in the moment problem-solving and make connections between problem-solving for activity and in real-life situations. Increased awareness of problem-solving strategies. Will continue in IOP to maintain safety, increase health coping skills, and stabilize mood. Narrative Note: []
--- NOTE | 2022-04-22 11:20 | BH.SGPN.GN ---
Behaviors/Verbalizations/Mental Status: []Pt alert and oriented, casual dress, hygiene tended to. Eye contact good. Motor activity WNL. Speech appropriate rate and tone. Affect congruent, mood anxious and euthymic. Thoughts linear, logical, no signs of hallucinations or delusions. Client Response/Progress/Benefit: []Pt engaged in session as evidenced by pt listening to others and providing input throughout. Pt practiced in the activity and expressed feeling frustration and anxious, but pt was able to cope by listening and problem-solving with peers. Pt identified a goal pt wants to work on which is to do something physically active on the days pt comes to IOP. Pt?s barriers included not talking to people, distracting self on her phone, negative self-talk, and poor time management. Pt also identified steps she could take such as reminding herself of the benefits of physical activity, setting a timer for 20 minutes, and planning to exercise after IOP. Pt seemed to benefit from learning about problem solving method and rehearsing problem-solving skills in the moment. Pt will continue IOP tx to promote use of healthy coping skills, further improve daily functioning, and reduce avoidance. Narrative Note: []
--- NOTE | 2022-04-28 09:00 | BH.SGPN.GN ---
Behaviors/Verbalizations/Mental Status: [] Eye contact is good. Motor activity is appropriate. Appearance is casual. Speech is Appropriate. Mood is euthymic. Affect is full. Thoughts are linear and logical. No evidence of psychosis. Reviewed daily check in sheet and no reports of suicidal ideations or intent. Client Response/Progress/Benefit: [] Pt was an active participant in group discussions. Attentive. Provided appropriate feedback. Daily symptom tracker notes 2/5 for anxiety. Emotion for today is excited. Mental health win is that she visited [place] (where is she moving to in a couple weeks) and visited several potential employers. As a result of this she has 3 interviews lined up. She is excited to be working in her field and to start adulting however is anxious about moving two hours away from home and going out on my own. She has never lived independently. Group empathized with anxiety and normalized it which was beneficial. She has been utilizing skills such as reframing and affirmations to manage her anxiety. She is proud of her progress and the positive changes she has made in a short time. Plan is to discharge from [facility] on 04/30/22. Narrative Note: []
--- NOTE | 2022-04-28 10:05 | BH.SGPN.GN ---
Behaviors/Verbalizations/Mental Status: []Client alert and oriented, casually dressed and groomed. Eye contact good. Motor activity appropriate. Speech within normal limits. Affect congruent, mood euthymic. Thoughts linear, logical, no signs of hallucinations or delusions. Client Response/Progress/Benefit: []Client was an active participant in activity and taking notes during group discussion. Attentive during psychoeducation on coping skills, why people use unhealthy coping skills, and how to replace unhealthy coping skills. Client shared negative coping of sleeping too much which had resulted in avoidance for her. Benefited from increased understanding of unhealthy coping skills and the need for developing healthy internal and external coping skills. Client identified external coping more than internal, but recently has utilized learned skills more frequently. Client will continue IOP tx to maintain progress and improve overall functioning with expected discharge date later this week. Narrative Note: []
--- NOTE | 2022-04-28 11:05 | BH.SGPN.GN ---
Behaviors/Verbalizations/Mental Status: [] Client alert and oriented, neatly dressed and groomed. Eye contact fair to good. Motor activity appropriate. Speech within normal limits. Affect congruent, mood euthymic. Thoughts linear, logical, no signs of hallucinations or delusions. Client Response/Progress/Benefit: [] Client responded well to session AEB taking notes and providing input and examples throughout. Group discussed the different categories of coping skills which included distraction, emotional release, grounding, self-love, and thought challenging. Client created a coping skill menu identifying various skills to try in each category. Client's coping skill menu included: Reading and being outside, focus on what's in her control, living in the moment, journal and then communicate feelings to other, and increase awareness of her cognitive distortions that are present. Appeared to benefit from increasing repertoire of healthy coping skills. Client will continue IOP tx to improve daily functioning, reduce negative thinking, and increase application of healthy coping skills with expected discharge date this week. Narrative Note: []
--- NOTE | 2022-04-29 09:01 | BH.SGPN.GN ---
Behaviors/Verbalizations/Mental Status: []Eye contact is good. Motor activity is appropriate. Appearance is casual. Speech is Appropriate. Mood is euthymic. Affect is congruent. Thoughts are linear and logical. No evidence of psychosis. Reviewed daily check in sheet and no reports of suicidal ideations or intent. Client Response/Progress/Benefit: []Client responded well to session AEB listening attentively to others and providing feedback and thoughts to group. Client reported mental health positive as going out to eat with her grandma yesterday which she stated was enjoyable to weber with each other. Client reported additional positive as getting to hang out with her brother. Client reported she is excited she is continuing to build a healthy connection with him. Client reported stressor as having a nightmare last night which is the first one in a long time. Seemed to benefit from peer support and expressing thoughts. Client to continue IOP to continue use of healthy coping skills, challenge negative thinking and prevent decompensation.
--- NOTE | 2022-04-29 10:10 | BH.SGPN.GN ---
Behaviors/Verbalizations/Mental Status: [] Eye contact is good. Motor activity is appropriate. Appearance is casual. Speech is Appropriate. Mood is euthymic. Affect is full. Thoughts are linear and logical. No evidence of psychosis. Client Response/Progress/Benefit: [] Pt was an active participant in group discussion. Attentive during psychoeducation and participated in group activity. Participated in interactive group discussion on internal and external barriers to mental health progress. Group identified examples of internal barriers as; negative thoughts, anxiety, cognitive distortions, and past experiences. External barriers identified were toxic people, lack of support/resources, stressful work, and housing issues. Pt meghana a picture of her current reality which she described her emotions as messy and unpredictable. States that she feels like she is on a emotional rollercoaster however its not as bad as when I started IOP. Her life seem uphill but she is hopeful. Her picture of desired mental health reality includes herself as being less stressed, more calm, and life's bumps not being so overwhelming. Benefited from increased awareness of current barriers to progress as well as current/desired realities. Plan is to discharge from IOP today. Narrative Note: []
--- NOTE | 2022-04-29 11:15 | BH.SGPN.GN ---
Behaviors/Verbalizations/Mental Status: []Pt alert and oriented, neatly dressed and groomed. Eye contact good. Motor activity appropriate. Speech within normal limits. Affect congruent, mood euthymic. Thoughts linear, logical, no signs of hallucinations or delusions. Client Response/Progress/Benefit: []Pt engaged during activity, encouraging peers and contributed as group brainstormed ideas on how to cope with internal barriers that keep pts stuck from moving towards goals. Able to identify barriers to desired reality. Identified barriers to current reality to include: engaging in self-sabotage, allowing distortions to control her, and minimizing progress. Pt wants to work on overcoming the barrier of letting distortions control her mood by validating her emotions first and then looking at the evidence. Benefited from group by identifying obstacles and solutions to desired reality.? Pt will continue IOP tx for one more day to reinforce healthy coping skills and establish aftercare plan. Narrative Note: []
--- NOTE | 2022-04-30 09:10 | BH.SGPN.GN ---
Behaviors/Verbalizations/Mental Status: [] Eye contact is good. Motor activity is appropriate. Appearance is casual. Speech is Appropriate. Mood is euthymic. Affect is full. Thoughts are linear and logical. No evidence of psychosis. Reviewed daily check in sheet and no reports of suicidal ideations or intent. Client Response/Progress/Benefit: [] Pt was an active participant in group discussion. Attentive. Provided appropriate feedback. Daily symptom tracker notes 10/21 for depression, anxiety, and anger. Emotion for today is weird. Shared that today is her last day in [facility] and I'm not sure how to feel about it. States I don't want to leave but notes that she feels more confidence and prepared to manage stressors, negative thoughts, and overwhelming events/emotions. She talked about her progress in the IOP program and shared that group on identifying and changing thoughts resonated the most with her. She also believes that she is communicating more effectively, setting boundaries, and caring for herself more which has been beneficial to her overall mental health. Future-oriented and has several job interviews lined up in the next few weeks. She plans on pursing EMDR in the future. Her aftercare is currently up in the air however as she is moving to [place] in 2 weeks and her insurance provider has no in-network providers in that area for counseling. She plans on getting a job or applying for Medicaid [place] and promises she will get linked. She reports being anxious about upcoming changes such as moving, living independently, finding a full-time job in her field, and just becoming an adult. Progress noted. Plan to discharge from [facility] today. Narrative Note: []
--- NOTE | 2022-04-30 10:10 | BH.SGPN.GN ---
Behaviors/Verbalizations/Mental Status: []Pt alert and oriented, casually dressed and groomed. Eye contact good. Motor activity appropriate. Speech within normal limits. Affect congruent, mood euthymic and anxious. Thoughts linear, logical, no signs of hallucinations or delusions. Client Response/Progress/Benefit: []Pt was an engaged participant AEB pt listening attentively to others. Attentive during psychoeducation on communication styles. Assisted group with identifying barriers of effective communication which included: ?dropping hints,? shutting down, assumptions, yelling, and being passive-aggressive. Pt identified they most often use passive-aggressive communication. Pt reports being passive-aggressive impacts pt by causing more conflict and pt ends up not getting her needs met. Pt stated she has been doing better with using direct communication since starting IOP. Benefited from increased awareness of different communication barriers, styles, and the importance of communicating effectively to improve mental wellness. Will discharge from IOP tx today as pt has made significant progress and has accomplished her tx goals. Narrative Note: []
--- NOTE | 2022-04-30 11:10 | BH.SGPN.GN ---
Behaviors/Verbalizations/Mental Status: []Pt alert and oriented, casually dressed and groomed. Eye contact good. Motor activity appropriate. Speech within normal limits. Affect congruent, mood euthymic. Thoughts linear, logical, no signs of hallucinations or delusions Client Response/Progress/Benefit: []Pt responded well to session AEB pt listening attentively to others and providing input during group discussion on the pay offs and costs of the different communication styles. Pt recognizes negative impact on relationships when she doesn't use healthy communication style. Pt did well in the activity to be assertive and ask for feedback. Recognizes if group wasn't assertive in activity they wouldn't have been successful. Attentive during psychoeducation on interpersonal DBT skill YVONNE. Pt set a goal to work on expressing needs when asked a question instead of saying I don't know. Pt seemed to benefit from increasing awareness of healthy strategies to improve communication. Pt has made significant treatment progress and will discharge from [facility] today.
== END 2022-04-30 13:18 | disposition home or self-care (01) ==
LOC: BHIOP 07:25
PROVIDERS: Referring Provider Psychiatry & Neurology Psychiatry; Visit Provider Psychiatry & Neurology Psychiatry
DX: F33.2 Major depressive disorder, recurrent severe without psychotic features (principal); F43.10 Post-traumatic stress disorder, unspecified; F60.3 Borderline personality disorder; F41.1 Generalized anxiety disorder; Z91.51 Personal history of suicidal behavior; F12.99 Cannabis use, unspecified with unspecified cannabis-induced disorder; Z79.899 Other long term (current) drug therapy; Z97.5 Presence of (intrauterine) contraceptive device
CPT/HCPCS: S9480; 90832; 90853